=== PATIENT | male | born 1995 | race Hispanic/Latino ===

== ENCOUNTER 2018-09-13 22:49 | Emergency (ER) | payer SELFPAY ==
[2018-09-13] MEDS ORDERED: Sodium Chloride 0.9% 1,000 ML IV ONE (23:09)
--- NOTE | 2018-09-13 23:09 | C.PDOC ---
History Of Present Illness 22 year old male presents to ED with complaints of nausea, vomiting, and weakness for 2 hours prior to arrival after having a large meal and smoking marijuana. Patient complains of persistent nausea and headache. Patient admits to smoking marijuana occasionally. Patient denies any prior marijuana reaction, any other drug use, and abdominal pain. Time Seen by Provider: 09/13/18 23:02 Chief Complaint (Nursing): GI Problem History Per: Patient History/Exam Limitations: no limitations, intoxication Onset/Duration Of Symptoms: Hrs (2) Current Symptoms Are (Timing): Still Present Context: Other (Marijuana use) Associated Symptoms: Nausea, Vomiting, Other (weakness and headache) Past Medical History Reviewed: Historical Data, Nursing Documentation, Vital Signs Vital Signs: Last Vital Signs Temp 97.8 F 09/13/18 22:55 Pulse 80 09/13/18 22:55 Resp 18 09/13/18 22:55 BP 120/81 09/13/18 22:55 Pulse Ox 99 09/13/18 22:55 - Medical History PMH: No Chronic Diseases Surgical History: No Surg Hx Family History: States: Unknown Family Hx - Social History Hx Alcohol Use: No Hx Substance Use: Yes - Immunization History Hx Tetanus Toxoid Vaccination: No Hx Influenza Vaccination: No Hx Pneumococcal Vaccination: No Review Of Systems Constitutional: Positive for: Weakness. Negative for: Fever, Chills Cardiovascular: Negative for: Chest Pain Respiratory: Positive for: Cough. Negative for: Shortness of Breath Gastrointestinal: Positive for: Nausea, Vomiting. Negative for: Abdominal Pain Musculoskeletal: Negative for: Back Pain Neurological: Positive for: Weakness, Headache. Negative for: Numbness, Dizziness Physical Exam - Physical Exam Appears: Non-toxic, Other (no acute distress) Skin: Dry, Other (Intact) Head: Atraumatic, Normacephalic Neck: Normal ROM, Supple Chest: Symmetrical, No Deformity Respiratory: Normal Breath Sounds, No Accessory Muscle Use Gastrointestinal/Abdominal: Soft, No Tenderness Extremity: Capillary Refill (< 2 seconds) Extremity: Bilateral: Atraumatic, Normal Color And Temperature Pulses: Left Radial: Normal, Right Radial: Normal Neurological/Psych: Normal Speech, Other (no acute intoxication, calm and cooperative) ED Course And Treatment - Laboratory Results Result Diagrams: 09/13/18 23:23 09/13/18 23:23 O2 Sat by Pulse Oximetry: 99 (RA) Progress Note: Labs ordered for patient. Pepcid IVP, NaCl IV, tylenol PO, and zo lillian IVP given to patient. Progress - Re-Evaluation Re-evaluation Note: 09/14/18 00:15 FEELS BETTER, WISHES DC HOME - Data Reviewed Data Reviewed: Lab, Old records Disposition Counseled Patient/Family Regarding: Studies Performed, Diagnosis, Need For Fo llowup, Rx Given - Disposition Referrals: [facility] [Outside] [facility] [Outside] Disposition: HOME/ ROUTINE Disposition Time: 00:15 Condition: IMPROVED Prescriptions: Ondansetron ODT [Zofran ODT] 4 mg PO TID PRN #12 odt PRN Reason: Nausea/Vomiting Instructions: Nausea and Vomiting, Adult (DC) Forms: [employer] (Nepali) - Clinical Impression Clinical Impression: Vomiting - Scribe Statement The provider has reviewed the documentation as recorded by the Scribe (Adalgisa James) All medical record entries made by the Scribe were at my direction and personally dictated by me. I have reviewed the chart and agree that the record accurately reflects my personal performance of the history, physical exam, medical decision making, and the department course for this patient. I have also personally directed, reviewed, and agree with the discharge instructions and disposition.
[2018-09-13 23:28] LABS: BASO % 0.4 % (0.0-2.0); EOS # 0.1 K/uL (0.0-0.7); EOS % 0.5 % (0.0-4.0); HEMOGLOBIN 14.7 g/dL (12.0-18.0); LYMPH # 1.7 K/uL (1.0-4.3); LYMPH % 12.7 % (20.0-40.0); MEAN CELL VOLUME 97.9 fL (80.0-94.0); MEAN CORPUSCULAR HEMOGLOBIN 32.4 pg (27.0-31.0); MEAN CORPUSCULAR HGB CONC 33.1 g/dL (33.0-37.0); MEAN PLATELET VOLUME 9.8 fL (7.2-11.7); MONO # 0.7 K/uL (0.0-0.8); MONO % 5.6 % (0.0-10.0); NEUT # 10.6 K/uL (1.8-7.0); NEUT % 80.8 % (50.0-75.0); RBC 4.53 Mil/uL (4.40-5.90); RED CELL DISTRIBUTION WIDTH 13.5 % (11.5-14.5); WHITE BLOOD COUNT 13.1 K/uL (4.8-10.8)
[2018-09-13 23:40] LABS: ALB/GLOB RATIO 1.7 (1.0-2.1); ALBUMIN 4.7 g/dL (3.5-5.0); ALT/SGPT 18 U/L (21-72); AST/SGOT 21 U/L (17-59); BLOOD UREA NITROGEN 24 mg/dL (9-20); CALCIUM 9.3 mg/dl (8.6-10.4); GFR NON-AFRICAN AMERICAN > 60
[2018-09-14 00:31] VITALS: BP 114/67; PULSE 77; RESP 16; TEMP 98.2; O2SAT 100
== END 2018-09-14 00:31 | disposition home or self-care (01) ==
LOC: C.ER 22:49
DX: R11.2 Nausea with vomiting, unspecified (principal)
CPT/HCPCS: 80053; 85025; 96361; 96374; 96375; 99284; J2405; J7030